=== PATIENT | female | born 1950 | race Asian ===

== ENCOUNTER 2022-01-26 02:55 | Emergency (ER) | payer OTHER, MEDICAID ==
[~2022-01-26] VITALS: Ht 147.3 cm; Wt 52.2 kg
[2022-01-26 02:55] VITALS: BP 162/76
--- NOTE | 2022-01-26 02:55 | NUR ---
TO BED 4 VIA RNEY
--- NOTE | 2022-01-26 03:10 | NUR ---
Patient resting in bed, A/Ox4, chest rise and fall symmetrical, no s/s of distress, patient on monitor.
--- NOTE | 2022-01-26 03:35 | NUR ---
Patient at CT.
--- NOTE | 2022-01-26 04:15 | NUR ---
Pt back from CT.
--- NOTE | 2022-01-26 04:51 | NUR ---
fuel cell battery technician called for stat draw. fuel cell battery technician verbalized understanding and stated she "will be in ER to draw."
[2022-01-26 05:15] LABS: BASOPHILS % (AUTO) 0.2 % (0.0-2.0); EOSINOPHILS % (AUTO) 0.4 % (0.0-4.0); HEMATOCRIT 37.7 % (36-48); HEMOGLOBIN 11.9 g/dL (12.0-16.0); LYMPHOCYTES % (AUTO) 9.2 % (20.5-51.1); MEAN CORPUSCULAR HEMOGLOBIN 22 pg (27-31); MEAN CORPUSCULAR HGB CONC 32 g/dL (33-37); MEAN CORPUSCULAR VOLUME 68.5 fL (80-94); MONOCYTES # (AUTO) 0.3 K/uL (0.8-1.0); MONOCYTES % (AUTO) 3.2 % (1.7-9.3); NEUTROPHILS # (AUTO) 9.1 K/uL (1.8-7.7); PLATELET COUNT (AUTO) 195 K/uL (140-450); RED BLOOD CELL COUNT(AUTO) 5.51 MIL/uL (4.20-5.40); RED CELL DISTRIBUTION WIDTH 15.9 % (11.6-13.7); WHITE BLOOD COUNT (AUTO) 10.5 K/uL (4.8-10.8)
[2022-01-26] MEDS ORDERED: LISI-487 PO (05:26)
[2022-01-26] MEDS ORDERED: ATOR10TA PO (05:26)
[2022-01-26 05:33] LABS: PROTHROMBIN TIME 9.8 secs (10.8-13.4)
--- NOTE | 2022-01-26 05:58 | NUR ---
Patient resting in bed, A/Ox4, chest rise and fall symmetrical, no s/s of distress, patient on monitor.
[2022-01-26 06:10] LABS: ALBUMIN 3.3 g/dL (3.4-5.0); ANION GAP 12.6 (8-16); ASPARTATE AMINOTRANSFERASE 30 U/L (15-37); CARBON DIOXIDE 29.3 mmol/L (21-32); CHLORIDE 104 mmol/L (98-107); CREATININE 0.6 mg/dL (0.6-1.3); GLUCOSE 112 mg/dL (74-106); POTASSIUM 3.9 mmol/L (3.5-5.1); SODIUM SERUM 142 mmol/L (136-145); TOTAL BILIRUBIN 0.4 mg/dL (0.0-1.0); UREA NITROGEN, BLOOD 16 mg/dL (7-18)
--- NOTE | 2022-01-26 07:23 | NUR ---
Change of shift report given to Pa STEVENS. Pa STEVENS verbalized understanding of report, no further questions.
--- NOTE | 2022-01-26 07:24 | NUR ---
Received report from RODNEY York. Assumed care at this time.
--- NOTE | 2022-01-26 08:14 | NUR ---
Called [facility] and gave report to RODNEY Barbosa.
--- NOTE | 2022-01-26 08:20 | NUR ---
Patient to be transferred to [facility]. Is being transferred due to higher level of care. Receiving facility has accepting physician and available space. ER physician has signed transfer form. Patient or responsible libertarian has agreed to transfer and signed form. Patient belongings inventoried and will be sent with patient. Copy of nursing notes, lab reports, EKG, Physicians Orders and Imaging to be sent with patient. Report called to RODNEY Barbosa at receiving facility. [facility] has been called for transfer. ETA is 40min.
--- NOTE | 2022-01-26 09:15 | NUR ---
[facility] AT BEDSIDE.
[2022-01-26 09:32] VITALS: BP 131/65
== END 2022-01-26 09:15 | disposition short-term general hospital (02) ==
LOC: MED 02:55
DX: S02.118A Other fracture of occiput, unspecified side, initial encounter for closed fracture (principal); Z20.822 Contact with and (suspected) exposure to COVID-19; S19.9XXA Unspecified injury of neck, initial encounter; I10 Essential (primary) hypertension; E78.5 Hyperlipidemia, unspecified; Z79.899 Other long term (current) drug therapy; W01.0XXA Fall on same level from slipping, tripping and stumbling without subsequent striking against object, initial encounter; Y93.89 Activity, other specified; Y92.89 Other specified places as the place of occurrence of the external cause; Y99.8 Other external cause status
CPT/HCPCS: 36415; 70450; 72125; 80053; 85025; 85610; 85730; 93005; 99285